=== PATIENT | male | born 1960 | race Caucasian/White ===

== ENCOUNTER 2018-11-24 15:46 | Emergency (ER) | payer OTHER ==
[~2018-11-24] VITALS: Ht 185.4 cm; Wt 124.7 kg
[~2018-11-24 15:46] MED LIST: AMLODIPINE BESY10 MG PO; BENAZEPRIL HCL20 MG PO; CARAFATE 1 GM TA1 G1 PO; HYDROCODONE-AP1 EAC6 PO; NAPROXEN SODIU220 MG; PROTONIX40 M1 PO; ULTRAM 50MG TAB50 MG PO
[2018-11-24] MEDS ORDERED: ARAVA20 MG PO (16:05)
[2018-11-24] MEDS ORDERED: NEXIUM40 MG PO (16:06)
[2018-11-24] MEDS ORDERED: BP MED (16:06)
[2018-11-24] MEDS ORDERED: NORCO 5-325 TA1 EACH PO (17:15)
[2018-11-24 17:43] VITALS: BP 113/83
== END 2018-11-24 17:45 | disposition home or self-care (01) ==
LOC: M.ERS 15:46
DX: M25.562 Pain in left knee (principal); I10 Essential (primary) hypertension; M06.9 Rheumatoid arthritis, unspecified; M19.90 Unspecified osteoarthritis, unspecified site; Z87.891 Personal history of nicotine dependence